=== PATIENT | male | born 2000 | race Two or more races ===

== ENCOUNTER 2023-08-14 13:03 | Emergency (ER) | payer MEDICAID ==
[~2023-08-14] VITALS: Ht 180.3 cm; Wt 128.4 kg
[2023-08-14 14:25] VITALS: BP 146/78; PULSE 97; RESP 18; TEMP 97.4; O2SAT 98
== END 2023-08-14 14:31 | disposition home or self-care (01) ==
LOC: ER 13:03
DX: R60.0 Localized edema (principal); R73.9 Hyperglycemia, unspecified; V49.9XXA Car occupant (driver) (passenger) injured in unspecified traffic accident, initial encounter; Y93.89 Activity, other specified; Y92.89 Other specified places as the place of occurrence of the external cause; Y99.8 Other external cause status
CPT/HCPCS: 82962